=== PATIENT | male | born 1965 | race African-American/Black ===

== ENCOUNTER 2019-09-26 10:33 | Inpatient (IN) | payer OTHER ==
[~2019-09-26] VITALS: Ht 172.7 cm; Wt 76.2 kg
[2019-09-26] MEDS ORDERED: HYDRALAZINE 20MG/ML VIAL IV ONE (11:30)
[2019-09-26 11:32] LABS: BASOPHILS % 0.4 % (0.0-2.0); EOSINOPHILS % 0.9 % (0.0-5.0); HEMOGLOBIN. 17.2 g/dL (14.0-18.0); LYMPHOCYTES % 13.5 % (20.0-50.0); MEAN CORPUSCULAR HEMOGLOBIN 28.6 pg (28.0-32.0); MEAN CORPUSCULAR VOLUME 86.7 fL (80.0-94.0); MONOCYTES % 4.4 % (2.0-8.0); NEUTROPHILS % 80.8 % (40.0-76.0); PLATELET 229 x1000/uL (130-400); RED CELL DISTRIBUTION WIDTH 15.4 % (11.6-14.6)
[2019-09-26 11:38] LABS: CHLORIDE 102 mEq/L (98-107)
[2019-09-26 11:39] LABS: PROTHROMBIN TIME 10.9 sec (9.6-11.0)
[2019-09-26 11:43] LABS: ETHANOL BLOOD < 10 mg/dL
[2019-09-26 11:44] LABS: CLARITY URINE CLEAR (CLEAR); COLOR URINE YELLOW (YELLOW); KETONES URINE NEGATIVE (NEGATIVE); LEUKOCYTE ESTERASE URINE NEGATIVE (NEGATIVE); NITRITE URINE NEGATIVE (NEGATIVE); OCCULT BLOOD URINE NEGATIVE (NEGATIVE); PH URINE 8.5 (4.5-8.0); PROTEIN URINE NEGATIVE (NEGATIVE); SPECIFIC GRAVITY URINE 1.011 (1.005-1.030); UROBILINOGEN URINE 0.2 E.U./dL (0.2-1.0)
[2019-09-26 11:46] LABS: LDL CHOLESTEROL 245 mg/dL (5-100)
[2019-09-26 12:07] LABS: *AMPHETAMINES SCREEN URINE NEGATIVE (NEGATIVE); *BARBITURATES SCREEN URINE NEGATIVE (NEGATIVE); *BENZODIAZEPINES SCREEN URINE NEGATIVE (NEGATIVE); *COCAINE SCREEN URINE NEGATIVE (NEGATIVE); CANNABINOID URINE SCREEN NEGATIVE (NEGATIVE); METHADONE URINE SCREEN NEGATIVE (NEGATIVE); OPIATES URINE SCREEN NEGATIVE (NEGATIVE); PHENCYCLIDINE URINE SCREEN NEGATIVE (NEGATIVE)
[2019-09-26] MEDS ORDERED: AMLODIPINE 10MG TABLET PO ONE (12:15)
[2019-09-26] MEDS ORDERED: METOPROLOL TARTRATE 25MG TABLET PO ONE (12:15)
[2019-09-26] MEDS ORDERED: ASPIRIN 81MG TABLET PO ONE (13:30)
[2019-09-26] MEDS ORDERED: ACETAMINOPHEN 325MG TABLET PO PRN (16:15)
[2019-09-26] MEDS ORDERED: MAGNESIUM/ALUMINUM HYDROXIDE/SIMETHICONE 30ML UDC PO PRN (16:15)
[2019-09-26] MEDS ORDERED: HYDROCODONE/ACETAMINOPHEN 10/325MG TABLET PO PRN (16:15)
[2019-09-26] MEDS ORDERED: ENOXAPARIN 40MG/0.4ML SYR SUBCUT SCH (16:15)
[2019-09-26] MEDS ORDERED: GUAIFENESIN 200MG/10ML SUGAR FREE UDC PO PRN (16:15)
[2019-09-26] MEDS ORDERED: DOCUSATE SODIUM 100MG CAPSULE PO PRN (16:15)
[2019-09-26] MEDS ORDERED: LORAZEPAM 2MG/ML CPJ IV PRN (16:15)
[2019-09-26] MEDS ORDERED: HYDRALAZINE 20MG/ML VIAL IV PRN (16:15)
[2019-09-26] MEDS ORDERED: ONDANSETRON HCL 4MG/2ML INJ IV PRN (16:15)
[2019-09-26] MEDS ORDERED: DIPHENHYDRAMINE 50MG/ML VIAL IV PRN (16:15)
[2019-09-26] MEDS ORDERED: IPRATROPIUM/ALBUTEROL 0.5-3(2.5)MG/3ML NEB HHN PRN (16:15)
[2019-09-26] MEDS ORDERED: MORPHINE SULFATE 2 MG/ML CPJ (NOT FOR IM USE) IV PRN (16:15)
[2019-09-26 18:27] VITALS: BP 187/82
[2019-09-26] MEDS ORDERED: METO-539 MT (18:27)
[2019-09-26] MEDS ORDERED: AMLO10TA80 MT (18:28)
[2019-09-26] MEDS ORDERED: ROSU40TA MT (18:28)
[2019-09-26] MEDS: CLONIDINE 0.1MG TABLET PO PRN (18:37)
[2019-09-26 18:41] VITALS: BP 187/82
[2019-09-26 20:00] VITALS: BP 161/104
[2019-09-26] MEDS: ENOXAPARIN 30MG/0.3ML SYR SUBCUT SCH (20:57)
[2019-09-26] MEDS: SODIUM CHLORIDE 0.9% INJ 3ML FLUSH IVF SCH (21:00)
[2019-09-26 22:00] VITALS: BP 145/101
[2019-09-27] VITALS (9 sets, daily range): BP systolic 119–145; BP diastolic 77–100
[2019-09-27 00:24] LABS: CREATINE KINASE MB FRACTION 3.9 ng/mL (0.5-3.6)
[2019-09-27] MEDS: SODIUM CHLORIDE 0.9% INJ 3ML FLUSH IVF SCH ×2 (06:53→13:04)
[2019-09-27 06:54] LABS: BASOPHILS % 0.7 % (0.0-2.0); EOSINOPHILS % 0.4 % (0.0-5.0); HEMATOCRIT. 46.9 % (42.0-52.0); MEAN CORPUSCULAR VOLUME 85.2 fL (80.0-94.0); MEAN PLATELET VOLUME 7.8 fl (7.4-10.4); MONOCYTES % 9.1 % (2.0-8.0); NEUTROPHILS % 68.8 % (40.0-76.0); PLATELET 222 x1000/uL (130-400); RED CELL DISTRIBUTION WIDTH 15.4 % (11.6-14.6)
[2019-09-27 07:42] LABS: CREATINE KINASE MB FRACTION 3.4 ng/mL (0.5-3.6)
[2019-09-27 08:03] LABS: CHLORIDE 103 mEq/L (98-107)
[2019-09-27] MEDS ORDERED: ASPIRIN 81MG EC TABLET PO SCH (09:00)
[2019-09-27] MEDS: ENOXAPARIN 30MG/0.3ML SYR SUBCUT SCH (09:10)
[2019-09-27] MEDS: CLONIDINE 0.1MG TABLET PO PRN (10:42)
[2019-09-27] MEDS ORDERED: AMLODIPINE 10MG TABLET PO SCH (12:15)
[2019-09-27] MEDS ORDERED: ATORVASTATIN CALCIUM 40MG TABLET PO SCH (21:00)
[2019-09-28] MEDS ORDERED: ENOXAPARIN 40MG/0.4ML SYR SUBCUT SCH (09:00)
== END 2019-09-27 17:17 | disposition home or self-care (01) | DRG 557 ==
LOC: ER 10:33 → 5EST 14:15 → EDBEDREQ 14:19 → ENRESERV 15:43
PROVIDERS: ADMIT Internal Medicine; ATTEND Internal Medicine
DX: M62.82 Rhabdomyolysis (principal); N17.0 Acute kidney failure with tubular necrosis; I16.1 Hypertensive emergency; E78.5 Hyperlipidemia, unspecified; I12.9 Hypertensive chronic kidney disease with stage 1 through stage 4 chronic kidney disease, or unspecified chronic kidney disease; N18.9 Chronic kidney disease, unspecified; R42 Dizziness and giddiness; R55 Syncope and collapse; R79.89 Other specified abnormal findings of blood chemistry; J45.909 Unspecified asthma, uncomplicated; Z86.73 Personal history of transient ischemic attack (TIA), and cerebral infarction without residual deficits
CPT/HCPCS: 36415; 70551; 71045; 76770; 80053; 80305; 80320; 81003; 82550; 82553; 82962; 83721; 84443; 84484; 85025; 93005; 93306; 93970; 99291; J0360; J1650; G0480

== ENCOUNTER 2023-06-26 11:18 | Emergency (ER) | payer OTHER ==
[~2023-06-26] VITALS: Ht 172.7 cm; Wt 100.0 kg
[~2023-06-26 11:18] MED LIST: AMLO10TA80 MT; METO-539 MT
[2023-06-26] MEDS ORDERED: IPRATROPIUM/ALBUTEROL 0.5-3(2.5)MG/3ML NEB HHN PRN (11:45)
[2023-06-26] MEDS ORDERED: METHYLPREDNISOLONE SOD SUCC 40MG/ML (ACT-O-VIAL) IV NR (12:00)
[2023-06-26 12:31] LABS: BASOPHILS % 0.5 % (0.0-2.0); EOSINOPHILS % 1.3 % (0.0-5.0); HEMATOCRIT. 54.6 % (42.0-52.0); HEMOGLOBIN. 17.6 g/dL (14.0-18.0); LYMPHOCYTES % 13.5 % (20.0-50.0); MEAN CORPUSCULAR HEMOGLOBIN 28.7 pg (28.0-32.0); MEAN CORPUSCULAR HGB CONC 32.2 g/dL (31.0-37.0); MEAN CORPUSCULAR VOLUME 89.1 fL (80.0-94.0); MEAN PLATELET VOLUME 8.5 fl (7.4-10.4); MONOCYTES % 3.6 % (2.0-8.0); NEUTROPHILS % 81.1 % (40.0-76.0); PLATELET 256 x1000/uL (130-400); RED BLOOD CELL COUNT 6.13 mill/uL (4.7-6.1); RED CELL DISTRIBUTION WIDTH 15.6 % (11.6-14.6); WHITE BLOOD COUNT 9.1 x1000/uL (4.5-11.0)
[2023-06-26 12:38] LABS: PROTHROMBIN TIME 11.1 sec (9.6-11.0)
[2023-06-26 12:48] LABS: ALANINE AMINOTRANSFERASE 35 IU/L (10-49); ALBUMIN 4.7 g/dL (3.2-4.8); ASPARTATE AMINOTRANSFERASE 36 IU/L (<34); BILIRUBIN TOTAL 0.4 mg/dL (0.1-1.0); CALCIUM 9.5 mg/dL (8.7-10.4); CARBON DIOXIDE 29 mEq/L (21-32); CHLORIDE 103 mEq/L (98-107); CREATININE 1.9 mg/dL (0.6-1.3); GLUCOSE 129 mg/dL (70-105); POTASSIUM 4.4 mEq/L (3.5-5.1); PROTEIN TOTAL 8.4 g/dL (6.0-8.3); SODIUM 138 mEq/L (136-145); TROPONIN I HIGH SENSITIVITY 31 ng/L (3.0-53); UREA NITROGEN BLOOD 22 mg/dL (9-23)
[2023-06-26 14:15] VITALS: PULSE 92; RESP 20; O2SAT 98
[2023-06-26 14:21] LABS: BG BASE EXCESS -0.9 mmol/L (-2.0-2.0); BG CARBOXYHEMOGLOBIN 0.6 % (0.5-1.5); BG DEOXYHEMOGLOBIN 5.8 % (0.0-5.0); BG FRACTION INSPIRED OXYGEN 28; BG HCO3 ACT 24.7 mmol/L (22.0-26.0); BG METHEMOGLOBIN 0.3 % (0.0-1.5); BG OXYGEN SATURATION 94.1 % (92.0-98.5); BG OXYHEMOGLOBIN 93.3 % (94.0-97.0); BG PCO2 44.4 mmHg (35.0-45.0); BG PH 7.364 (7.350-7.450); BG PO2 71.7 mmHg (75.0-100.0); BG SAMPLE SITE RIGHT RADIAL; BG TOTAL HEMOGLOBIN 17.3 g/dL (12.0-18.0); BG VENT MODE NASAL CANNULA
[2023-06-26 16:32] LABS: TROPONIN I HIGH SENSITIVITY 29 ng/L (3.0-53)
[2023-06-26 18:24] VITALS: BP 153/103; PULSE 112; RESP 20; TEMP 98.1
== END 2023-06-26 19:00 | disposition short-term general hospital (02) ==
LOC: ER 11:18 → CANBEDREQ 06-27 21:22
DX: R05.9 Cough, unspecified (principal); J45.909 Unspecified asthma, uncomplicated; I10 Essential (primary) hypertension; Z86.73 Personal history of transient ischemic attack (TIA), and cerebral infarction without residual deficits; Z20.822 Contact with and (suspected) exposure to COVID-19
CPT/HCPCS: 80053; 83880; 85025; 85610; 87040; 84484; 36415; 71045; 94640; 82805; 82375; 96374; 99285; 87426; 36600; J2920; Z7610 ×5

== ENCOUNTER 2025-03-01 10:10 | Inpatient (IN) | payer SELFPAY ==
[~2025-03-01] VITALS: Ht 172.7 cm; Wt 84.8 kg
[2025-03-01] VITALS (10 sets, daily range): BP systolic 118–151; BP diastolic 77–95; PULSE 85–95; RESP 17–28; TEMP 36.7–37.1; O2SAT 94–98
[2025-03-01 10:35] LABS: BASOPHILS % 0.7 % (0.0-2.0); EOSINOPHILS % 2.2 % (0.0-5.0); HEMATOCRIT. 50.9 % (42.0-52.0); HEMOGLOBIN. 16.9 g/dL (14.0-18.0); LYMPHOCYTES % 28.8 % (20.0-50.0); MEAN PLATELET VOLUME 8.3 fl (7.4-10.4); MONOCYTES % 6.9 % (2.0-8.0); NEUTROPHILS % 61.4 % (40.0-76.0); PLATELET 245 x1000/uL (130-400); RED BLOOD CELL COUNT 5.79 mill/uL (4.7-6.1); RED CELL DISTRIBUTION WIDTH 16.5 % (11.6-14.6)
[2025-03-01 11:07] LABS: BG BASE EXCESS -2.4 mmol/L (-2.0-3.0); BG CARBOXYHEMOGLOBIN 0.1 % (0.5-1.5); BG DEOXYHEMOGLOBIN 0.6 % (0.0-5.0); BG FRACTION INSPIRED OXYGEN 100; BG HCO3 ACT 23.0 mmol/L (21.0-28.0); BG METHEMOGLOBIN 0.5 % (0.5-1.5); BG OXYGEN SATURATION 99.4 % (94.0-98.0); BG OXYHEMOGLOBIN 98.8 % (94.0-98.0); BG PCO2 41.6 mmHg (35.0-48.0); BG PH 7.360 (7.350-7.450); BG PO2 237.7 mmHg (83.0-108.0); BG SAMPLE SITE RIGHT RADIAL; BG TOTAL HEMOGLOBIN 16.9 g/dL (13.5-17.5); BG TOTAL RESPIRATORY RATE 25 b/min; BG VENT MODE MASK - BIPAP; BG VENT RATE 16.0 set
[2025-03-01] MEDS ORDERED: ENALAPRIL 2.5MG/2ML VIAL 2ML IV ONE (11:30)
[2025-03-01] MEDS: FUROSEMIDE 40MG/4ML VIAL IVP ONE (11:31)
[2025-03-01] MEDS: ENALAPRIL 1.25MG/ML VIAL 1ML IV NR (11:40)
[2025-03-01 11:48] LABS: CREATININE 2.0 mg/dL (0.6-1.3); UREA NITROGEN BLOOD 13 mg/dL (9-23)
[2025-03-01 12:02] LABS: TROPONIN I HIGH SENSITIVITY 64 ng/L (3.0-53)
[2025-03-01] MEDS ORDERED: ACETAMINOPHEN 325MG TABLET PO PRN (12:15)
[2025-03-01] MEDS ORDERED: ONDANSETRON HCL 4MG/2ML INJ IV PRN (12:15)
[2025-03-01] MEDS ORDERED: HYDROCODONE/ACETAMINOPHEN 5/325MG TABLET PO PRN (12:15)
[2025-03-01] MEDS ORDERED: NALOXONE HCL 0.4MG/ML VIAL IV PRN (12:15)
[2025-03-01] MEDS ORDERED: MAGNESIUM/ALUMINUM HYDROXIDE/SIMETHICONE 30ML UDC PO PRN (12:15)
[2025-03-01] MEDS: IPRATROPIUM/ALBUTEROL 0.5-3(2.5)MG/3ML NEB NEB SCH (12:48)
[2025-03-01] MEDS: PANTOPRAZOLE SODIUM 40 MG/VIAL IV SCH (13:37)
[2025-03-01] MEDS: ENOXAPARIN 40MG/0.4ML SYR SUBCUT SCH (13:37)
[2025-03-01] MEDS: AMLODIPINE 10MG TABLET PO SCH (14:57)
[2025-03-01] MEDS: HYDRALAZINE HCL 100MG TABLET PO SCH (14:57)
[2025-03-01 16:52] LABS: TROPONIN I HIGH SENSITIVITY 77 ng/L (3.0-53)
[2025-03-01] MEDS: FUROSEMIDE 40MG/4ML VIAL IVP SCH (17:24)
[2025-03-01 20:57] LABS: CLARITY URINE CLEAR (CLEAR); COLOR URINE YELLOW (YELLOW); GLUCOSE URINE 3+ (NEGATIVE); KETONES URINE NEGATIVE (NEGATIVE); LEUKOCYTE ESTERASE URINE NEGATIVE (NEGATIVE); NITRITE URINE NEGATIVE (NEGATIVE); OCCULT BLOOD URINE NEGATIVE (NEGATIVE); PH URINE 5.0 (4.5-8.0); PROTEIN URINE NEGATIVE (NEGATIVE); SPECIFIC GRAVITY URINE 1.009 (1.005-1.030); UROBILINOGEN URINE 0.2 E.U./dL (0.2-1.0)
[2025-03-01] MEDS ORDERED: ZOLPIDEM TARTRATE 5MG TABLET PO PRN (21:00)
[2025-03-01 21:05] LABS: *AMPHETAMINES SCREEN URINE NEGATIVE (NEGATIVE); *BARBITURATES SCREEN URINE NEGATIVE (NEGATIVE); *BENZODIAZEPINES SCREEN URINE NEGATIVE (NEGATIVE); *COCAINE SCREEN URINE NEGATIVE (NEGATIVE); CANNABINOID URINE SCREEN NEGATIVE (NEGATIVE); ECSTASY MDMA SCREEN URINE NEGATIVE (NEGATIVE); METHADONE URINE SCREEN NEGATIVE (NEGATIVE); OPIATES URINE SCREEN NEGATIVE (NEGATIVE); PHENCYCLIDINE URINE SCREEN NEGATIVE (NEGATIVE)
[2025-03-01 21:14] LABS: BACTERIA URINE TRACE; RBC URINE NONE SEEN /hpf (0-2); SQUAMOUS EPITHELIAL CELL URINE RARE /lpf (RARE/1+); WBC URINE NONE SEEN /hpf (0-2)
[2025-03-01] MEDS: METHYLPREDNISOLONE SOD SUCC 40MG/ML (ACT-O-VIAL) IV SCH (21:24)
[2025-03-01] MEDS: BUDESONIDE 0.5MG/2ML NEB HHN SCH (22:21)
[2025-03-01] MEDS: CLONIDINE 0.1MG TABLET PO PRN (23:33)
[2025-03-02] VITALS (18 sets, daily range): BP systolic 111–162; BP diastolic 60–96; PULSE 94–116; RESP 15–29; TEMP 36.4–37.1; O2SAT 91–100
[2025-03-02 00:48] LABS: TROPONIN I HIGH SENSITIVITY 88 ng/L (3.0-53)
[2025-03-02] MEDS ORDERED: DEXTROSE 50% WATER 50ML SYRINGE IV PRN (02:45)
[2025-03-02] MEDS: AZITHROMYCIN 500MG/250ML 250 ML IV SCH (05:37)
[2025-03-02] MEDS: CEFTRIAXONE 1GM/50ML 50 ML IV SCH (05:37)
[2025-03-02] MEDS: BLOOD SUGAR DIAGNOSTIC STRIP TEST SCH (08:14)
[2025-03-02] MEDS: INSULIN LISPRO 100 UNITS/ML SUBCUT SCH (08:38)
[2025-03-02 12:29] LABS: HEMATOCRIT. 43.7 % (42.0-52.0); HEMOGLOBIN. 14.4 g/dL (14.0-18.0); MEAN PLATELET VOLUME 8.7 fl (7.4-10.4); PLATELET 217 x1000/uL (130-400); RED BLOOD CELL COUNT 5.01 mill/uL (4.7-6.1); RED CELL DISTRIBUTION WIDTH 15.7 % (11.6-14.6)
[2025-03-02 12:42] LABS: CREATININE 2.6 mg/dL (0.6-1.3)
[2025-03-02 12:43] LABS: UREA NITROGEN BLOOD 19.0 mg/dL (9-23)
[2025-03-02 13:57] LABS: BAND% 2.0 % (1.0-6.0); LYMPHOCYTES % MANUAL 6.0 % (20.0-50.0); MONOCYTES % MANUAL 2.0 % (2.0-8.0); NEUTROPHILS % MANUAL 90.0 % (45.0-75.0); PLATELET ESTIMATE NORMAL
[2025-03-03] VITALS (15 sets, daily range): BP systolic 113–155; BP diastolic 58–120; PULSE 86–124; RESP 15–23; TEMP 36.5–36.9; O2SAT 96–100
[2025-03-03 06:36] LABS: HEMATOCRIT. 46.4 % (42.0-52.0); HEMOGLOBIN. 15.1 g/dL (14.0-18.0); MEAN PLATELET VOLUME 9.1 fl (7.4-10.4); PLATELET 223 x1000/uL (130-400); RED BLOOD CELL COUNT 5.28 mill/uL (4.7-6.1); RED CELL DISTRIBUTION WIDTH 16.0 % (11.6-14.6)
[2025-03-03 07:26] LABS: CREATININE 2.7 mg/dL (0.6-1.3); UREA NITROGEN BLOOD 28.0 mg/dL (9-23)
[2025-03-03 10:20] LABS: BAND% 4.0 % (1.0-6.0); LYMPHOCYTES % MANUAL 5.0 % (20.0-50.0); MONOCYTES % MANUAL 2.0 % (2.0-8.0); NEUTROPHILS % MANUAL 89.0 % (45.0-75.0); PLATELET ESTIMATE NORMAL
[2025-03-03] MEDS ORDERED: ISOS30TA91 PO (16:00)
[2025-03-03] MEDS ORDERED: METO-411 PO (16:00)
[2025-03-03] MEDS ORDERED: SACU1TAB4 PO (16:00)
[2025-03-03] MEDS ORDERED: EMPA25TA PO (16:00)
[2025-03-03] MEDS ORDERED: HYDR25TA78 PO (16:00)
[2025-03-03] MEDS ORDERED: ASPI-1497 PO (16:00)
[2025-03-03] MEDS ORDERED: EZET10TA81 PO (16:00)
[2025-03-03] MEDS ORDERED: METOPROLOL TARTRATE 50MG TABLET PO SCH (16:15)
[2025-03-03] MEDS ORDERED: AMLODIPINE 10MG TABLET PO SCH (16:15)
[2025-03-03] MEDS: ASPIRIN 81MG TABLET PO SCH (16:56)
[2025-03-03] MEDS: METOPROLOL TARTRATE 50MG TABLET PO SCH (16:57)
[2025-03-03] MEDS: EZETIMIBE 10MG TABLET PO SCH (16:57)
[2025-03-03] MEDS: EMPAGLIFLOZIN 25MG TABLET PO SCH (16:57)
[2025-03-03] MEDS: ISOSORBIDE MONONITRATE 30MG TABLET SR 24HR PO SCH (17:03)
[2025-03-04] VITALS (16 sets, daily range): BP systolic 108–157; BP diastolic 62–93; PULSE 86–103; RESP 12–23; TEMP 36.4–36.8; O2SAT 93–99
[2025-03-04 05:36] LABS: HEMATOCRIT. 44.4 % (42.0-52.0); HEMOGLOBIN. 14.7 g/dL (14.0-18.0); MEAN PLATELET VOLUME 8.9 fl (7.4-10.4); PLATELET 253 x1000/uL (130-400); RED BLOOD CELL COUNT 5.08 mill/uL (4.7-6.1); RED CELL DISTRIBUTION WIDTH 16.0 % (11.6-14.6)
[2025-03-04 05:55] LABS: CREATININE 2.9 mg/dL (0.6-1.3); UREA NITROGEN BLOOD 36.0 mg/dL (9-23)
[2025-03-04 05:57] LABS: PHOSPHORUS 5.7 mg/dL (2.5-4.9)
[2025-03-04] MEDS: FUROSEMIDE 40MG TABLET PO SCH (08:44)
[2025-03-04] MEDS ORDERED: IPRATROPIUM/ALBUTEROL 0.5-3(2.5)MG/3ML NEB HHN PRN (14:00)
[2025-03-04] MEDS: LORATADINE 10MG TABLET PO SCH (14:00)
[2025-03-04] MEDS: MONTELUKAST SODIUM 10MG TABLET PO SCH (17:21)
[2025-03-04 17:42] LABS: LYMPHOCYTES % MANUAL 4.0 % (20.0-50.0); MONOCYTES % MANUAL 4.0 % (2.0-8.0); NEUTROPHILS % MANUAL 92.0 % (45.0-75.0); PLATELET ESTIMATE NORMAL
[2025-03-04] MEDS: FAMOTIDINE 20MG TABLET PO SCH (20:46)
[2025-03-04] MEDS: IPRATROPIUM/ALBUTEROL 0.5-3(2.5)MG/3ML NEB HHN SCH (20:48)
[2025-03-05] VITALS (10 sets, daily range): BP systolic 145–169; BP diastolic 81–104; PULSE 97–114; RESP 13–21; TEMP 36.4–36.7; O2SAT 79–99
[2025-03-05] MEDS: AZITHROMYCIN 500MG/250ML 250 ML IV SCH (05:41)
[2025-03-05 05:45] LABS: BASOPHILS % 0.3 % (0.0-2.0); EOSINOPHILS % 0.0 % (0.0-5.0); HEMATOCRIT. 43.9 % (42.0-52.0); HEMOGLOBIN. 14.3 g/dL (14.0-18.0); LYMPHOCYTES % 7.3 % (20.0-50.0); MEAN PLATELET VOLUME 8.7 fl (7.4-10.4); MONOCYTES % 8.9 % (2.0-8.0); NEUTROPHILS % 83.5 % (40.0-76.0); PLATELET 241 x1000/uL (130-400); RED BLOOD CELL COUNT 4.96 mill/uL (4.7-6.1); RED CELL DISTRIBUTION WIDTH 16.1 % (11.6-14.6)
[2025-03-05 05:57] LABS: CREATININE 2.6 mg/dL (0.6-1.3); UREA NITROGEN BLOOD 39.0 mg/dL (9-23)
[2025-03-05] MEDS: ISOSORBIDE MONONITRATE 60MG TABLET SR 24HR PO SCH (08:33)
[2025-03-05] MEDS: ENOXAPARIN 30MG/0.3ML SYR SUBCUT SCH (08:34)
[2025-03-05] MEDS: METHYLPREDNISOLONE SOD SUCC 40MG/ML (ACT-O-VIAL) IV SCH (08:35)
[2025-03-05] MEDS ORDERED: FAMOTIDINE 20MG/2ML VIAL IV SCH (09:00)
[2025-03-05] MEDS ORDERED: ISOS60TA76 PO (10:11)
[2025-03-05] MEDS ORDERED: ASPI-1497 PO (10:11)
[2025-03-05] MEDS ORDERED: EZET10TA81 PO (10:11)
[2025-03-05] MEDS ORDERED: AMLO10TA80 MT (10:11)
[2025-03-05] MEDS ORDERED: METO-539 MT (10:11)
[2025-03-05] MEDS ORDERED: FURO-151 MT (10:11)
[2025-03-05] MEDS ORDERED: HYDR100T31 PO (10:11)
[2025-03-05] MEDS ORDERED: EMPA25TA PO (10:11)
[2025-03-05] MEDS: INFLUENZA VACCINE 05/PF 0.5 ML SYRINGE IM ONE (13:09)
== END 2025-03-05 13:14 | disposition home or self-care (01) | DRG 133 ==
LOC: ER 10:48 → EDBEDREQ 11:23 → EDBEDREQTM 11:23 → 5EST 12:23
PROVIDERS: ADMIT Internal Medicine; ATTEND Internal Medicine
PROC: 5A09357 Assistance with Respiratory Ventilation, Less than 24 Consecutive Hours, Continuous Positive Airway Pressure (ICD-10-PCS; principal; 2025-03-01)
DX: J96.01 Acute respiratory failure with hypoxia (principal); I50.23 Acute on chronic systolic (congestive) heart failure; I16.1 Hypertensive emergency; J18.1 Lobar pneumonia, unspecified organism; I21.A1 Myocardial infarction type 2; I13.0 Hypertensive heart and chronic kidney disease with heart failure and stage 1 through stage 4 chronic kidney disease, or unspecified chronic kidney disease; J44.1 Chronic obstructive pulmonary disease with (acute) exacerbation; J45.901 Unspecified asthma with (acute) exacerbation; J44.0 Chronic obstructive pulmonary disease with (acute) lower respiratory infection; N17.9 Acute kidney failure, unspecified; G47.33 Obstructive sleep apnea (adult) (pediatric); E66.9 Obesity, unspecified; E78.5 Hyperlipidemia, unspecified; F17.210 Nicotine dependence, cigarettes, uncomplicated; E11.22 Type 2 diabetes mellitus with diabetic chronic kidney disease; E83.52 Hypercalcemia; N18.30 Chronic kidney disease, stage 3 unspecified; N40.0 Benign prostatic hyperplasia without lower urinary tract symptoms; Z68.28 Body mass index [BMI] 28.0-28.9, adult; Z82.49 Family history of ischemic heart disease and other diseases of the circulatory system; Z83.3 Family history of diabetes mellitus; Z86.73 Personal history of transient ischemic attack (TIA), and cerebral infarction without residual deficits
CPT/HCPCS: 36415; 36600; 71045; 76770; 80048; 80305; 81003; 82375; 82805; 82962; 83036; 83880; 83970; 84100; 84145; 84155; 84165; 84443; 84484; 85025; 90686; 93005; 93306; 93970; 94070; 94640; 94660; 94664; 99291; A4606; J0456; J0696; J1650; J1815; J1938; J2470; J2919; J3490; J7626

== ENCOUNTER 2025-04-18 10:25 | Emergency (ER) | payer MEDICAID ==
[~2025-04-18] VITALS: Ht 172.7 cm; Wt 95.0 kg
[~2025-04-18 10:25] MED LIST changes: +ASPI-1497 PO; +EMPA25TA PO; +EZET10TA81 PO; +FURO-151 MT; +HYDR100T31 PO; +ISOS60TA76 PO
[2025-04-18 10:26] VITALS: O2SAT 98
[2025-04-18 11:55] LABS: BASOPHILS % 0.8 % (0.0-2.0); EOSINOPHILS % 1.5 % (0.0-5.0); HEMATOCRIT. 43.2 % (42.0-52.0); HEMOGLOBIN. 14.2 g/dL (14.0-18.0); LYMPHOCYTES % 24.4 % (20.0-50.0); MEAN PLATELET VOLUME 8.3 fl (7.4-10.4); MONOCYTES % 8.2 % (2.0-8.0); NEUTROPHILS % 65.1 % (40.0-76.0); PLATELET 231 x1000/uL (130-400); RED BLOOD CELL COUNT 4.92 mill/uL (4.7-6.1); RED CELL DISTRIBUTION WIDTH 15.7 % (11.6-14.6)
[2025-04-18 12:20] LABS: CREATININE 2.2 mg/dL (0.6-1.3); UREA NITROGEN BLOOD 17 mg/dL (9-23)
[2025-04-18 12:21] LABS: TROPONIN I HIGH SENSITIVITY 27 ng/L (3.0-53)
[2025-04-18 12:22] LABS: ASPARTATE AMINOTRANSFERASE 34 IU/L (<34); BILIRUBIN DIRECT < 0.1 mg/dL (<=3.0); BILIRUBIN TOTAL 0.4 mg/dL (0.1-1.0); PROTEIN TOTAL 7.0 g/dL (6.0-8.3)
[2025-04-18 13:56] VITALS: BP 130/88; PULSE 90; RESP 18; TEMP 36.7; O2SAT 98
== END 2025-04-18 13:58 | disposition home or self-care (01) ==
LOC: ER 10:25
DX: R60.0 Localized edema (principal); J45.909 Unspecified asthma, uncomplicated; E11.9 Type 2 diabetes mellitus without complications; I10 Essential (primary) hypertension; Z79.899 Other long term (current) drug therapy; Z79.84 Long term (current) use of oral hypoglycemic drugs; Z79.82 Long term (current) use of aspirin; Z86.73 Personal history of transient ischemic attack (TIA), and cerebral infarction without residual deficits
CPT/HCPCS: 36415; 71045; 73630; 80048; 80076; 83880; 84484; 85025; 93971; 99284

== ENCOUNTER 2025-05-08 13:03 | Emergency (ER) | payer MEDICAID ==
[~2025-05-08] VITALS: Ht 154.9 cm; Wt 85.0 kg
[2025-05-08] MEDS: DEXAMETHASONE 10 MG/ML VIAL IM ONE (14:04)
[2025-05-08 14:12] VITALS: PULSE 99; RESP 18; O2SAT 100
[2025-05-08] MEDS: IPRATROPIUM/ALBUTEROL 0.5-3(2.5)MG/3ML NEB HHN ONE (14:12)
[2025-05-08] MEDS ORDERED: METH4TAB95 MT (14:59)
[2025-05-08] MEDS ORDERED: ALBU05 NEB (15:01)
[2025-05-08 15:11] VITALS: BP 188/119; PULSE 100; RESP 18; TEMP 37.2; O2SAT 97
== END 2025-05-08 15:20 | disposition home or self-care (01) ==
LOC: ER 13:03
DX: J45.901 Unspecified asthma with (acute) exacerbation (principal); I10 Essential (primary) hypertension; E11.9 Type 2 diabetes mellitus without complications; Z79.899 Other long term (current) drug therapy; Z86.73 Personal history of transient ischemic attack (TIA), and cerebral infarction without residual deficits
CPT/HCPCS: 71045; 94640; 96372; 99283; J1100; Z7610 ×3; 94070